=== PATIENT | male | born 1945 | race Caucasian/White ===

== ENCOUNTER → 2023-09-02 06:48 | Outpatient (REF) | payer MEDICARE, BC, SELFPAY | LOC: RCS 06:48 | PROVIDERS: ATTENDING PHYSICIAN Family Medicine | DX: R94.31 Abnormal electrocardiogram [ECG] [EKG] (principal) | CPT/HCPCS: 78452; 93017; A9500 ==

== ENCOUNTER → 2024-03-06 11:51 | Outpatient (REF) | payer MEDICARE, BC, SELFPAY | LOC: RAD 11:51 | PROVIDERS: ATTENDING PHYSICIAN Family Medicine | DX: Z13.6 Encounter for screening for cardiovascular disorders (principal) | CPT/HCPCS: 75571 ==